=== PATIENT | female | born 2000 | race Caucasian/White ===

== ENCOUNTER 2024-06-18 22:09 | Emergency (ER) | payer BC, SELFPAY ==
[2024-06-18 22:17] VITALS: BP 102/68
[2024-06-18 22:43] LABS: % Basophils 0.3 % (0-2); % Immature Granulocytes 0.5 % (0-0.5); % Monocytes 8.4 % (1.7-9.3); % Neutrophils 76.8 % (42.2-75.2); Absolute Immature Granulocytes 0.1 10^3/uL (0-0.05); Absolute Lymphocytes 1.8 10^3/uL (1.2-3.4); Absolute Monocytes 1.1 10^3/uL (0.1-0.6); Absolute Neutrophils 9.9 10^3/uL (1.4-6.5); Hematocrit 40.2 % (37.0-47.0); Hemoglobin 14.2 g/dL (12.0-16.0); Mean Corp Hgb Conc. 35.3 g/dL (33.0-37.0); Mean Corpuscular Hgb 30.1 pg (27.0-31.0); Mean Corpuscular Volume 85.4 fL (81.0-99.0); Mean Platelet Volume 9.1 fL (7.4-10.4); Nucleated Red Blood Cells % 0 %; Platelet Count 213 10^3/uL (130-400); Red Blood Cell Count 4.71 10^6/uL (4.20-5.40); Red Cell Dist. Width 12.2 % (11.5-14.5); Urine Albumin 3+ (Neg - Trace); Urine Bilirubin 1+ (Negative); Urine Character Slightly Cloudy (Clear); Urine Color Yellow; Urine Glucose Negative (Negative); Urine Ketone 3+ (Negative); Urine Leukocyte 3+ (Negative); Urine Nitrite Negative (Negative); Urine Occult Blood 4+ (Negative); Urine Specific Gravity 1.025 (<1.030); Urine Urobilinogen 1+ (Neg - 1+); White Blood Cell Count 12.9 10^3/uL (4.8-10.8)
[2024-06-18 22:46] LABS: Urine Squamous Cell >30 /LPF (Few)
[2024-06-18 22:48] LABS: Urine Bacteria Many (Negative); Urine White Cell 90-100 /HPF (0-5)
[2024-06-18 22:58] LABS: Lactic Acid 1.5 mmol/L (0.7-2.0)
[2024-06-18 22:59] LABS: ALT (SGPT) 21 U/L (0-35); AST (SGOT) 24 U/L (14-36); Albumin 4.5 g/dl (3.5-5.0); Alkaline Phosphatase 38 U/L (38-126); Blood Urea Nitrogen 9 mg/dl (7-17); Calcium 9.7 mg/dl (8.4-10.2); Carbon Dioxide 25 mmol/L (22-30); Chloride 97 mmol/L (98-107); Glucose 124 mg/dl (70-99); Potassium 4.3 mmol/L (3.5-5.1); Sodium 136 mmol/L (135-145); Total Bilirubin 1.1 mg/dl (0.2-1.3); Total Protein 7.8 g/dl (6.3-8.2); eGFR > 60.00
[2024-06-18 23:09] VITALS: BP 125/74
[2024-06-18 23:12] LABS: Lipase 51 U/L (23-300)
[2024-06-18] MEDS: OMNIPAQUE 50 ML PO (23:30)
[2024-06-18] MEDS: NSS 1000 IV (23:31)
[2024-06-18] MEDS: ZOFRAN 4 MG IV (23:31)
[2024-06-18] MEDS: OFIRMEV 100 IV (23:31)
[2024-06-18 23:35] LABS: HCG, Serum Qualitative Screen Negative
--- NOTE | 2024-06-18 23:35 | ED.GENMED ---
Addendum entered and electronically signed by Derek Jasso DO 06/19/24 06:52:
Call from radiology patient CT reread this morning looks like pyelonephritis
Chart reviewed appears that that this was suspected clinically and patient was treated appropriately with ciprofloxacin
Original Note:
History of Present Illness
General
Chief Complaint: Abdominal Pain
Source: patient and family (Mother and father)
Exam Limitations: none
Time Seen by Provider: 06/18/24 23:15
Nursing documentation reviewed up to this point in time: agreed with
History of Present Illness
History of Present Illness:
24-year-old female with history of asthma who presents to the emergency department for evaluation of fever with abdominal pain. Patient reports that she felt general malaise yesterday after work and around 7 PM started feeling fever and chills,
checked her temperature and it was 102 �F. Fever continued all day today and about an hour prior to arrival she began to also have some nausea and right-sided abdominal pain. Pain located right mid abdomen radiates towards the right lower quadrant
and flank. Came to the emergency room for evaluation. She did have some vomiting here. No change in bowel movements. She denies any dysuria, change in urinary frequency, hematuria. She denies any vaginal bleeding or discharge. She denies
having had similar symptoms in the past. She denies prior abdominal surgeries.
Review of Systems
Review of Systems
All Other Systems: ROS reviewed and negative except as documented in HPI and ROS
Constitutional: Reports fever, fatigue and chills
EENT: Denies sore throat or runny nose
Respiratory: Denies cough or trouble breathing
Cardiac: Denies chest pain or palpitations
ABD/GI: Reports abdominal pain, nausea and vomiting; Denies diarrhea or constipated
: Reports flank pain; Denies dysuria, frequency or bleeding
Musculoskeletal: Denies neck pain or back pain
Neurological: Denies dizzy or headache
Phy Exam
Physical Exam
Physical Exam:
General: Awake, alert; holding emesis bag
Head: Normocephalic, atraumatic
Eyes: Conjunctiva normal, sclera anicteric
Throat: Airway intact, handling secretions, no tonsillar erythema or enlargement
Neck: Trachea midline, supple without meningismus
Lungs: Clear to auscultation bilaterally, no wheezing, rales, rhonchi
Heart: Tachycardia with regular rhythm, no murmurs, gallops, or rubs
Abd: Tender to palpation right upper and lower abdomen, no peritoneal signs, no masses
Back: No CVA tenderness
Neuro: No gross deficit
Skin: no rash
Extremities: No edema in extremities, equal pulses in all extremities
Scores
Heart Failure Risk
Heart Failure Risk Score: Not Applicable
Heart Score for Chest Pain Patients
STEMI patient?: Not applicable
Withdrawal Assessment of Alcohol
Withdrawal Assessment Completed?: Not applicable
Course
Orders/Labs/Results
Orders:
Orders
06/18/24 22:30
Complete Blood Count/With Diff Urgent
Comprehensive Metabolic Panel Urgent
HCG, Serum Qualitative Screen Urgent
Comment: ADD ON
Lactic Acid Urgent
Lipase Urgent
Urinalysis Reflex To Culture Urgent
Date Specimen was Collected: 06/18/24
Time Specimen was Collected: 22:21
Urine Microscopic Reflex Cult Urgent
Blood Culture Urgent
CHARLENE Source: Blood/Venous
Specimen Description:
Date Specimen was Collected: 06/18/24
Time Specimen was Collected: 22:21
Urine Culture Urgent
CHARLENE Source: U
Specimen Description:
Date Specimen was Collected: 06/18/24
Time Specimen was Collected: 22:21
06/18/24 23:13
Add On- LAB Urgent
Tests Added?: hcg qualitative
06/18/24 23:19
COVID-19 Antigen Urgent
Source: Nasal Swab
Influenza A+B Rapid Molecular Urgent
CHARLENE Source: Nasal Swab
Specimen Description:
06/18/24 23:24
0.9% Sodium Chloride 1000 ml [Nss] 1,000 ml IV BOLUS
Acetaminophen 1000MG/100Ml [Ofirmev] 1,000 mg in 100 ml IV ONCE
Acetaminophen IV Indication:: ED Narcotic History-ONCE
06/18/24 23:25
Iohexol [Omnipaque] See Protocol PO NOW STA
Ondansetron Injectable [Zofran] 4 mg IV NOW STA
06/19/24 01:30
CT Abd/pel W Iv And Oral Contr Urgent
Reason For Exam: RLQ abd pain
06/19/24 02:46
Ciprofloxacin HCl [Cipro] 500 mg PO ONCE ONE
Abnormal Lab Results
06/18/24
22:30
WBC 12.9 H 10^3/uL
(4.8-10.8)
Abs Immat Gran (auto) 0.1 H 10^3/uL
(0-0.05)
Absolute Neuts (auto) 9.9 H 10^3/uL
(1.4-6.5)
Absolute Monos (auto) 1.1 H 10^3/uL
(0.1-0.6)
Neutrophils % 76.8 H %
(42.2-75.2)
Lymphocytes % 14.0 L %
(20.5-51.1)
Chloride 97 L mmol/L
(98-107)
Glucose 124 H mg/dl
(70-99)
Urine Ketones 3+ A
(Negative)
Ur Occult Blood Reflex 4+ A
(Negative)
Urine Bilirubin 1+ A
(Negative)
Leukocyte Esterase Rfl 3+ A
(Negative)
Urine RBC 7-10 A /HPF
(0-2)
Urine WBC (Reflex) 90-100 A /HPF
(0-5)
Urine Bacteria (Reflex) Many A
(Negative)
Urine Albumin (Reflex) 3+ A
(Neg - Trace)
06/18/24 22:30
06/18/24 22:30
Vital Signs
Initial and Last Documented VS:
Initial Vital Signs
Temp Pulse Resp BP Pulse Ox
38.2 C H 154 20 102/68 98
06/18/24 22:17 06/18/24 22:17 06/18/24 22:17 06/18/24 22:17 06/18/24 22:17
Last Documented Vital Signs
Temp Pulse Resp BP Pulse Ox
37.1 C 92 20 95/60 98
06/19/24 00:51 06/19/24 01:45 06/19/24 01:45 06/19/24 01:00 06/19/24 01:45
MDM/Problems Addressed
Differential Diagnosis Includes:
Appendicitis, cholecystitis, enteritis, UTI
MDM/Problems Addressed:
24-year-old female presents with right sided abdominal pain and fever. Febrile and tachycardic here but normotensive. Physical exam as above. Will place an IV check labs including a CBC and a CMP, hCG, urinalysis. Send viral swabs. Check CT
abdomen pelvis. Treat with Tylenol, Zofran, fluids. Monitor closely reassess after the above.
Labs reviewed: CBC shows slight leukocytosis to 12.9 CMP no clinically significant abnormalities. hCG is negative. Her urinalysis is positive for bacteria and pyuria although there are squamous cells suggesting some degree of contamination.
Certainly UTI could account for symptoms however CT is pending.
CT shows no acute intra-abdominal pathology to account for symptoms. Appendix visualized and normal. Patient's vital signs have been stable, fever improved with Tylenol. Heart rate normalized after fluids and antipyretic. Could be mild viral
syndrome causing fever but given her abdominal pain and abnormal urinalysis I think she should be treated for UTI. I think she is stable for discharge and outpatient antibiotics. Patient feels comfortable with this plan. We spoke about return
precautions and all questions were answered.
*Radiology
Radiology exam reviewed: radiology read reviewed
*Pulse Oximetry
Patient hypoxic: no
*Critical Care Note
Total Time (30-74mins, 75-104mins- exclusive of procedures): Not Applicable
Data Reviewed
Review of Other/Old Records Reveals: Labs and Records
Source: patient and family
ED Attending Note
-
Portions of this chart may have been created with voice recognition software.� Occasional wrong word or��sound alike� substitutions may have occurred due to the inherent limitations of voice recognition software.
Discharge Plan
Departure
Patient with high blood pressure during this ER visit?: No
Discharge Problem:
Fever, Abdominal pain, UTI (urinary tract infection)
Instructions: Urinary tract infections in adults, Abdominal Pain
Prescriptions:
New
ciprofloxacin HCl 500 mg tablet
500 mg PO BID Qty: 14 0RF
No Action
fluticasone propion-salmeterol [Advair HFA] 1 PUFF HFA aerosol inhaler
2 puff inhalation R BID Qty: 1 1RF
Referrals:
Emily Albrecht PA-C [Family Provider] -
Activity Restrictions/Additional Instructions:
Thank you for visiting the Emergency Department at [facility].
1. Please schedule a follow up appointment as directed. Call first thing tomorrow morning to make an appointment.
2. If indicated, please take your medications as instructed and indicated on discharge paperwork.
3. If any of your symptoms do not improve, or persist, or become more severe within 6-12 hours, please return to the emergency department for further care.
4. Please return to the emergency department if you develop a headache, neck pain/stiffness, fever greater than 100.4F, chest pain, shortness of breath, persistent nausea, vomiting, slurred speech, difficulty walking, numbness/tingling, weakness,
signs of infection or any other symptoms that are worrisome to you.
Please call [phone] if you have any questions.
Interventions
Interventions:
*Risk Screen - Suicide Last Done: 06/18/24 23:14
*General Assessment Last Done: 06/18/24 22:17
*Neglect/Abuse Screening Last Done: 06/18/24 22:55
*ED- Fall Risk Assessment Last Done: 06/18/24 22:55
*ED COVID-19 Vaccine History Last Done: 06/18/24 22:55
[place]-Xgomdu-Ngbkpyaupb Assessment Last Done: 06/18/24 23:14
Discharge Date and Time
Print Language: SENEGALESE
[2024-06-18 23:40] LABS: COVID-19 Antigen Negative (Negative)
[2024-06-19 00:10] VITALS: BP 93/59
[2024-06-19 01:00] VITALS: BP 95/60
[2024-06-19] MEDS: CIPRO 500 MG PO (03:13)
== END 2024-06-19 03:22 | disposition home or self-care (01) ==
LOC: EMR 22:09
PROVIDERS: EMERGENCY PHYSICIAN Emergency Medicine; FAMILY PHYSICIAN Physician Assistant Medical
DX: N39.0 Urinary tract infection, site not specified (principal); R50.9 Fever, unspecified; R10.9 Unspecified abdominal pain; Z11.52 Encounter for screening for COVID-19; J45.909 Unspecified asthma, uncomplicated
CPT/HCPCS: 99285; 96374; 96375; 96361; 74177; 80053; 81003; 81015; 83605; 83690; 84703; 85025; 87040; 87086; 87502; 87811; Q9967